=== PATIENT | male | born 1960 | race African-American/Black ===

== ENCOUNTER 2017-08-19 01:50 | Observation (INO) | payer OTHER ==
[2017-08-19] VITALS (12 sets, daily range): BP systolic 121–168; BP diastolic 66–94; PULSE 64–90; RESP 15–20; TEMP 95.6–99.2; O2SAT 95–98
[~2017-08-19] VITALS: Ht 172.7 cm; Wt 108.0 kg
[~2017-08-19 01:50] MED LIST: ACET325S8 PO; ALBU17I INH; ALLO100T PO; GUAI100S6 PO; LEVA500T PO; OMPR20CCR PO; OSEL75 PO; PRED5TAB PO
[2017-08-19] MEDS ORDERED: SODIUM CHLORIDE 0.9% FLUSH 10 ML FLUSH IV FLUSH PRN ×3 (03:00→13:30)
--- NOTE | 2017-08-19 03:14 | PD ---
HPI Chief Complaint: Abdominal Pain Time Seen by Provider: 02:59 Travel History International Travel<30 days: No Contact w/Intl Traveler<30days: No Traveled to known affect area: No History of Present Illness HPI 57-year-old male presents to the emergency department for complaint of right upper quadrant pain. Patient has had intermittent right upper quadrant pain 2 weeks and this evening pain increased to the right upper quadrant and radiated to the right back and flank region. No nausea no vomiting. Patient denies chest pain or shortness of breath. No sweats. Patient denies history of hypertension dyslipidemia diabetes tobaccoism or cardiac disease. Patient does take medication for reflux esophagitis and gouty arthritis. Patient states he did eat chicken wings for dinner but does not note specifically any dietary association with this pain. Patient has had no fever or chills. No hematemesis coffee-ground emesis melena hematochezia. Patient rates pain as moderate to severe. Patient notes that sitting up and range of motion seem to worsen symptoms. Patient has been taking ibuprofen for pain relief over the past 3 weeks. PFSH Past Medical History Narrative Medical Gouty arthritis GERD occasional alcohol use marijuana use; nursing notes reviewed Cancer: No Cardiovascular Problems: No Diminished Hearing: No Endocrine: No Gout: Yes Immune Disorder: No Musculoskeletal: No Neurologic: No Psychiatric: No Reproductive: No Respiratory: No Past Surgical History Surgical History: No Previous Surgery Social History Alcohol Use: Yes Tobacco Use: No Substance Use: Yes (MARIJUANA) Allergies-Medications (Allergen,Severity, Reaction): Coded Allergies: amoxicillin (Unverified Allergy, Severe, 08/19/17) Reported Meds & Prescriptions Reported Meds & Active Scripts Active Reported Ibuprofen 200 Mg Tab 400 Mg PO DAILY PRN Omeprazole 20 Mg Tab 20 Mg PO DAILY Allopurinol 100 Mg Tab 100 Mg PO DAILY Review of Systems Except as stated in HPI: all other systems reviewed are Neg General / Constitutional: No: Fever, Chills HENT: No: Congestion Cardiovascular: No: Chest Pain or Discomfort Respiratory: No: Shortness of Breath Gastrointestinal: Positive: Abdominal Pain, No: Nausea, Vomiting Genitourinary: Positive: Flank Pain Musculoskeletal: No: Myalgias, Arthralgias Skin: No Rash Neurologic: No: Weakness Psychiatric: No: Anxiety Hematologic/Lymphatic: No: Lymph Node Enlargement Physical Exam Narrative GENERAL: Well-developed well-nourished female in no acute distress no respiratory distress SKIN: Warm and dry. HEAD: Normocephalic. EYES: No scleral icterus. No injection or drainage. NECK: Supple, trachea midline. No JVD or lymphadenopathy. CARDIOVASCULAR: Regular rate and rhythm without murmurs, gallops, or rubs. RESPIRATORY: Breath sounds equal bilaterally. No accessory muscle use. GASTROINTESTINAL: Abdomen soft, right upper quadrant tenderness to direct palpation without guarding or rebound, nondistended. MUSCULOSKELETAL: No cyanosis, or edema. BACK: Nontender without obvious deformity. Mild right flank tenderness/CVA tenderness. Data Data Last Documented VS Vital Signs Date Time Temp Pulse Resp B/P (MAP) Pulse Ox O2 Delivery O2 Flow Rate FiO2 08/19/17 07:13 79 15 135/74 (94) 96 08/19/17 03:59 Room Air 08/19/17 01:51 99.2 Orders Orders Complete Blood Count With Diff (08/19/17 02:59) Comprehensive Metabolic Panel (08/19/17 02:59) Lipase (08/19/17 02:59) Lactic Acid (08/19/17 02:59) Prothrombin Time / Inr (Pt) (08/19/17 02:59) Act Partial Throm Time (Ptt) (08/19/17 02:59) Urinalysis - C+S If Indicated (08/19/17 02:59) Ct Abd/Pel W Iv Contrast(Rout) (08/19/17 02:59) Iv Access Insert/Monitor (08/19/17 02:59) Ecg Monitoring (08/19/17 02:59) Oximetry (08/19/17 02:59) Sodium Chloride 0.9% Flush (Ns Flush) (08/19/17 03:00) Electrocardiogram (08/19/17 02:59) Morphine Inj (Morphine Inj) (08/19/17 03:15) Ondansetron Inj (Zofran Inj) (08/19/17 03:15) Troponin I (08/19/17 04:05) Ckmb (Isoenzyme) Profile (08/19/17 04:05) CKMB (08/19/17 03:34) CKMB% (08/19/17 03:34) Iohexol 350 Inj (Omnipaque 350 Inj) (08/19/17 04:42) Iohexol 350 Inj (Omnipaque 350 Inj) (08/19/17 04:53) Sodium Chlor 0.9% 1000 Ml Inj (Ns 1000 M (08/19/17 05:15) Lactic Acid (08/19/17 05:08) Sodium Chlor 0.9% 1000 Ml Inj (Ns 1000 M (08/19/17 05:15) Us Abdomen Gallbladder (08/19/17 ) Morphine Inj (Morphine Inj) (08/19/17 06:45) Sodium Chlor 0.9% 1000 Ml Inj (Ns 1000 M (08/19/17 06:45) Metronidazole 500 Mg Inj (Flagyl 500 Mg (08/19/17 08:00) Ciprofloxacin 400 Mg Premix (Cipro 400 M (08/19/17 08:00) Place In Observation (08/19/17 ) Code Status (08/19/17 07:49) Vital Signs (Adult) Q4H (08/19/17 07:49) Activity Oob With Assistance (08/19/17 07:49) Sodium Chloride 0.9% Flush (Ns Flush) (08/19/17 08:00) Sodium Chloride 0.9% Flush (Ns Flush) (08/19/17 09:00) Acetaminophen (Tylenol) (08/19/17 08:00) Ondansetron Inj (Zofran Inj) (08/19/17 08:00) Basic Metabolic Panel (Bmp) (08/20/17 06:00) Complete Blood Count With Diff (08/20/17 06:00) Scd Bilateral/Knee High PARAMJIT.BID (08/19/17 07:49) Naloxone Inj (Narcan Inj) (08/19/17 08:00) Magnesium Hydroxide Liq (Milk Of Magnesi (08/19/17 08:00) Consult Gastroenterology (08/19/17 ) Admit Order (Ed Use Only) (08/19/17 ) Vital Signs (Adult) Q4H (08/19/17 07:52) Diet Npo (08/19/17 Breakfast) Activity Oob With Assistance (08/19/17 07:52) Notify Dr: Other (08/19/17 07:52) Labs Laboratory Tests Test 08/19/17 03:34 08/19/17 04:25 08/19/17 04:30 08/19/17 06:05 White Blood Count 7.0 TH/MM3 Red Blood Count 4.54 MIL/MM3 Hemoglobin 13.8 GM/DL Hematocrit 41.0 % Mean Corpuscular Volume 90.2 FL Mean Corpuscular Hemoglobin 30.5 PG Mean Corpuscular Hemoglobin Concent 33.8 % Red Cell Distribution Width 14.4 % Platelet Count 206 TH/MM3 Mean Platelet Volume 8.1 FL Neutrophils (%) (Auto) 58.8 % Lymphocytes (%) (Auto) 27.9 % Monocytes (%) (Auto) 11.8 % Eosinophils (%) (Auto) 0.8 % Basophils (%) (Auto) 0.7 % Neutrophils # (Auto) 4.1 TH/MM3 Lymphocytes # (Auto) 2.0 TH/MM3 Monocytes # (Auto) 0.8 TH/MM3 Eosinophils # (Auto) 0.1 TH/MM3 Basophils # (Auto) 0.1 TH/MM3 CBC Comment DIFF FINAL Differential Comment Blood Urea Nitrogen 15 MG/DL Creatinine 1.24 MG/DL Random Glucose 135 MG/DL Total Protein 7.7 GM/DL Albumin 3.8 GM/DL Calcium Level 9.1 MG/DL Alkaline Phosphatase 58 U/L Aspartate Amino Transf (AST/SGOT) 24 U/L Alanine Aminotransferase (ALT/SGPT) 29 U/L Total Bilirubin 0.6 MG/DL Sodium Level 140 MEQ/L Potassium Level 4.2 MEQ/L Chloride Level 104 MEQ/L Carbon Dioxide Level 24.1 MEQ/L Anion Gap 12 MEQ/L Estimat Glomerular Filtration Rate 72 ML/MIN Lactic Acid Level 3.6 mmol/L 3.3 mmol/L Total Creatine Kinase 339 U/L Creatine Kinase MB 1.1 NG/ML Creatine Kinase MB % 0.3 % Troponin I LESS THAN 0.02 NG/ML Lipase 159 U/L Urine Color YELLOW Urine Turbidity CLEAR Urine pH 5.5 Urine Specific Rand 1.024 Urine Protein TRACE mg/dL Urine Glucose (UA) NEG mg/dL Urine Ketones TRACE mg/dL Urine Occult Blood NEG Urine Nitrite NEG Urine Bilirubin NEG Urine Urobilinogen 2.0 MG/DL Urine Leukocyte Esterase NEG Urine WBC 2 /hpf Urine Mucus FEW /lpf Microscopic Urinalysis Comment CULT NOT INDICATED Prothrombin Time 10.0 SEC Prothromb Time International Ratio 1.0 RATIO Activated Partial Thromboplast Time 24.5 SEC MDM Medical Decision Making Medical Screen Exam Complete: Yes Emergency Medical Condition: Yes Medical Record Reviewed: Yes Interpretation(s) EKG normal sinus rhythm rate [address] elevation injury pattern or ectopy noted Last Impressions Abdomen/Pelvis CT 08/19/17 0259 Signed Impressions: Service Date/Time: Saturday, August 19, 2017 04:44 - CONCLUSION: 1. Colonic diverticulosis. No evidence of acute diverticulitis. 2. Enlarged prostate. 3. Degenerative findings the lumbar spine and osteoarthritic findings of the right hip. Praneeth Laguna MD CBC & BMP Diagram 08/19/17 03:34 Total Protein 7.7, Albumin 3.8, Calcium Level 9.1, Alkaline Phosphatase 58, Aspartate Amino Transf (AST/SGOT) 24, Alanine Aminotransferase (ALT/SGPT) 29, Total Bilirubin 0.6 Vital Signs Date Time Temp Pulse Resp B/P (MAP) Pulse Ox O2 Delivery O2 Flow Rate FiO2 08/19/17 03:59 84 16 122/71 (88) 96 Room Air 08/19/17 03:00 86 16 121/79 (93) 98 Room Air 08/19/17 02:30 88 15 135/72 (93) 96 Room Air 08/19/17 02:00 90 16 130/94 (106) 97 Room Air 08/19/17 01:51 99.2 85 16 168/92 (117) 96 Room Air CK: 339, mildly elevated; mb: 1.1, not elevated; mb%:0.3%, not elevated ua: wnl Differential Diagnosis Abdominal pain, biliary colic, cholecystitis, pancreatitis, choledocholithiasis , gastritis, peptic ulcer disease, atypical chest pain Narrative Course Patient placed on panel monitor EKG performed specimen collected and sent for resulting patient kept nothing by mouth CT abdomen and pelvis ordered Patient administered morphine sulfate 4 mg IV along with Zofran 4 mg IV Patient resting comfortably voicing no concerns or complaints no reproducible abdominal discomfort or tenderness no flank pain CBC is automated differential values in normal range; metabolic panel values grossly within normal range; troponin I not elevated less than 0.02 CK total mildly elevated at 339 however MB and MB percent values are not elevated EKG shows no acute injury pattern change patient denies any chest pain or shortness of breath. Patient also has had no nausea or vomiting referred neck jaw upper back shoulder arm pain. CT abdomen and pelvis per reading radiologist diverticulosis with no acute abdominal pelvic process; lactic acid is elevated of unclear etiology Patient received IV fluid hydration to our lactic acid will be performed. Patient has no findings for SIRS or sepsis increased heart rate, no increased history rate, no increased white cell count, and no fever also no obvious site of infection at this time; suspect patient has experienced an episode of biliary colic. Repeat lactic acid resulted as 3.3 after 2 L of normal saline bolus and patient continues to complain of epigastric and right upper quadrant pain this time. Ultrasound gallbladder ordered and call placed to [facility] service for observation and further evaluation of abdominal pain elevated lactic acid. Physician Communication Physician Communication patient discussed with [facility] MD for Dr Michael Anguiano; Dr Barriga Diagnosis Primary Impression: Abdominal pain Qualified Codes: R10.11 - Right upper quadrant pain Admitting Information Admitting Physician Requests: Observation Referrals: Primary Care Physician 2 days Patient Instructions: Narcotic given in the ED Betsy Cr MD Aug 19, 2017 03:14
[2017-08-19] MEDS ORDERED: MORPHINE SULFATE 2 MG/ML INJ IV PUSH ONE ×2 (03:15→06:45)
[2017-08-19] MEDS ORDERED: ONDANSETRON HCL 4 MG/2 ML VIAL IV PUSH ONE (03:15)
[2017-08-19 04:01] LABS: AUTOMATED NEUTROPHIL # 4.1 TH/MM3 (1.8-7.7); BASOPHIL # 0.1 TH/MM3 (0-0.2); BASOPHIL % 0.7 % (0.0-2.0); EOSINOPHIL # 0.1 TH/MM3 (0-0.4); EOSINOPHIL % 0.8 % (0.0-4.0); HEMOGLOBIN 13.8 GM/DL (13.0-17.0); LYMPH % 27.9 % (9.0-44.0); MEAN CELL VOLUME 90.2 FL (80.0-100.0); MEAN CORPUSCULAR HEMOGLOBIN 30.5 PG (27.0-34.0); MEAN CORPUSCULAR HGB CONC 33.8 % (32.0-36.0); MEAN PLATELET VOLUME 8.1 FL (7.0-11.0); MONO % 11.8 % (0.0-8.0); MONOCYTE # 0.8 TH/MM3 (0-0.9); NEUT % 58.8 % (16.0-70.0); PLATELET COUNT 206 TH/MM3 (150-450); RED BLOOD COUNT 4.54 MIL/MM3 (4.50-5.90); RED CELL DISTRIBUTION WIDTH 14.4 % (11.6-17.2)
[2017-08-19] MEDS ORDERED: OMEP20TA93 PO (04:04)
[2017-08-19] MEDS ORDERED: IBUP200T47 PO (04:04)
[2017-08-19] MEDS ORDERED: ALLO100T PO (04:04)
[2017-08-19 04:21] LABS: ALKALINE PHOSPHATASE 58 U/L (45-117); TOTAL BILIRUBIN ADULT 0.6 MG/DL (0.2-1.0); TOTAL PROTEIN 7.7 GM/DL (6.4-8.2)
[2017-08-19 04:28] LABS: ALBUMIN 3.8 GM/DL (3.4-5.0); ALT (GPT) 29 U/L (12-78); AST (GOT) 24 U/L (15-37); BICARBONATE 24.1 MEQ/L (21.0-32.0); BLOOD UREA NITROGEN 15 MG/DL (7-18); CALCIUM 9.1 MG/DL (8.5-10.1); CHLORIDE 104 MEQ/L (98-107); CREATININE 1.24 MG/DL (0.60-1.30); GLOMERULAR FILTRATION RATE 72 ML/MIN (>89); GLUCOSE,RANDOM 135 MG/DL (74-106); LIPASE 159 U/L (73-393); SODIUM (NA) 140 MEQ/L (136-145)
[2017-08-19 04:40] LABS: TROPONIN I LESS THAN 0.02 NG/ML (0.02-0.05)
[2017-08-19 04:41] LABS: BILIRUBIN, URINE NEG (NEG); BLOOD, URINE NEG (NEG); GLUCOSE,URINE NEG (NEG); KETONE, URINE TRACE mg/dL (NEG); MUCUS URINE FEW /lpf (OCC); NITRITE,URINE NEG (NEG); PH, URINE 5.5 (5.0-8.5); URINE COLOR YELLOW (YELLW/STRAW); URINE LEUKOCYTE ESTERASE NEG (NEG)
[2017-08-19] MEDS ORDERED: IOHEXOL 350 MG/ML 10 ML VIAL (for RAD DIAG) IVCONTRAST ONE ×2 (04:42→04:53)
--- NOTE | 2017-08-19 05:03 | RADRPT ---
EXAM DATE/TIME: 08/19/2017 04:44 [place] COMPARISON: No previous studies available for comparison. INDICATIONS : Abdominal pain X 3 weeks. IV CONTRAST: 97 cc Omnipaque 350 (iohexol) IV ORAL CONTRAST: No oral contrast ingested. RADIATION DOSE: 16.00 CTDIvol (mGy) MEDICAL HISTORY : Gout SURGICAL HISTORY : None. ENCOUNTER: Initial ACUITY: 3 weeks PAIN SCALE: 6/10 LOCATION: abdomen TECHNIQUE: Volumetric scanning of the abdomen and pelvis was performed. Using automated exposure control and ad justment of the mA and/or kV according to patient size, radiation dose was kept as low as reasonably achievable to obtain optimal diagnostic quality images. DICOM format image data is available electro nically for review and comparison. FINDINGS: LOWER LUNGS: The visualized lower lungs are clear. LIVER: Homogeneous density without lesion. There is no dilation of the biliary tree. No calcified gallston es. SPLEEN: Normal size without lesion. PANCREAS: Within normal limits. KIDNEYS: Normal in size and shape. There is no mass, stone or hydronephrosis. ADRENAL GLANDS: Within normal limits. VASCULAR: There is no aortic aneurysm. BOWEL/MESENTERY: Multiple colonic diverticula concentrated in the sigmoid region. No inflammatory changes to suggest a cute diverticulitis. No evidence of bowel dilatation. No free air or free fluid. Appendix within norm al limits. ABDOMINAL WALL: 4 cm periumbilical fat-containing hernia. RETROPERITONEUM: There is no lymphadenopathy. BLADDER: No wall thickening or mass. REPRODUCTIVE: Prostate is enlarged measuring 5.2 x 4.4 cm. INGUINAL: There is no lymphadenopathy or hernia. MUSCULOSKELETAL: Degenerative findings of the lower lumbar spine and osteoarthritic findings of the right hip. CONCLUSION: 1. Colonic diverticulosis. No evidence of acute diverticulitis. 2. Enlarged prostate. 3. Degenerative findings the lumbar spine and osteoarthritic findings of the right hip. Praneeth Laguna MD on August 19, 2017 at 4:56 Board Certified Radiologist. This report was verified electronically.
[2017-08-19] MEDS ORDERED: SODIUM CHLOR 0.9% 1000 ML INJ 1,000 ML IV ONE ×2 (05:15)
[2017-08-19] MEDS: SODIUM CHLOR 0.9% 1000 ML INJ 1,000 ML IV SCH ×3 (07:16→22:45)
[2017-08-19] MEDS ORDERED: CIPROFLOXACIN 400 MG PREMIX 200 ML IV ONE (08:00)
[2017-08-19] MEDS ORDERED: ONDANSETRON HCL 4 MG/2 ML VIAL IVP PRN (08:00)
[2017-08-19] MEDS ORDERED: NALOXONE HCL 0.4 MG/ML AMP IV PUSH PRN (08:00)
[2017-08-19] MEDS ORDERED: ACETAMINOPHEN/HYDROcodone 325 MG/5 MG TAB PO PRN (08:00)
[2017-08-19] MEDS ORDERED: ACETAMINOPHEN 325 MG TAB PO PRN (08:00)
[2017-08-19] MEDS ORDERED: metroNIDAZOLE 500 MG INJ 100 ML IV ONE (08:00)
[2017-08-19] MEDS ORDERED: MAGNESIUM HYDROXIDE SUSP 30 ML CUP PO PRN (08:00)
[2017-08-19] MEDS ORDERED: ALLOPURINOL 100 MG TAB PO SCH (09:00)
[2017-08-19] MEDS ORDERED: SODIUM CHLORIDE 0.9% FLUSH 10 ML FLUSH IV FLUSH SCH ×2 (09:00→21:00)
[2017-08-19] MEDS ORDERED: PANTOPRAZOLE SODIUM 40 MG VIAL IV PUSH SCH (09:00)
--- NOTE | 2017-08-19 09:45 | HHI.HP ---
HPI Service [facility] Primary Care Physician Andi Anguiano D.O. Admission Diagnosis RUQ abdominal pain Chief Complaint: RUQ pain Travel History International Travel<30 Days: No Contact w/Intl Traveler <30 Da: No Traveled to Known Affected Are: No History of Present Illness This is a 57-year-old male patient with past medical history which includes EtOH abuse, diabetes, esophagitis, gout, hypertension and hyperlipidemia. Patient presents to the emergency department with complaints of right upper quadrant abdominal pain. Patient reports he's had intermittent right upper abdominal pain for the past 2- 3 weeks for which he's been taking ibuprofen. Patient's reports the pain has been going on for more like a month or longer. Patient reports yesterday evening (08/18/17) his pain increased and radiated to the right back and flank region. Patient states he did eat chicken wings for dinner but does not note specifically any dietary association with this pain. On admission patient reported his pain was moderate to severe. Patient denies nausea, vomiting, diarrhea, constipation, fevers, chills, cough, congestion, shortness of breath or chest pain. 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 Patient admits to drinking, "a lot," on a nightly basis. Review of Systems Constitutional: DENIES: Fatigue, Fever Eyes: DENIES: Blurred vision, Diplopia, Vision loss Respiratory: DENIES: Cough, Sputum production, Shortness of breath Cardiovascular: DENIES: Chest pain, Palpitations, Dyspnea on Exertion Gastrointestinal: COMPLAINS OF: Abdominal pain, GERD, DENIES: Black stools, Bloody stools, BRB per rectum, Constipation, Diarrhea, Nausea, Vomiting Neurologic: DENIES: Abnormal gait, Headache, Localized weakness Psychiatric: DENIES: Anxiety, Confusion, Depression Past Family Social History Past Medical History EtOH abuse, diabetes, esophagitis, gout, hypertension and hyperlipidemia Past Surgical History Denies prior surgeries Reported Medications Ibuprofen 200 Mg Tab 400 Mg PO DAILY PRN Omeprazole 20 Mg Tab 20 Mg PO DAILY Allopurinol 100 Mg Tab 100 Mg PO DAILY Allergies: Coded Allergies: amoxicillin (Unverified Allergy, Severe, 08/19/17) Active Ordered Medications Current Medications Medications (Trade) Dose Ordered Sig/Cboy Route Start Time Stop Time Status Last Admin Sodium Chloride 1,000 ml @ 125 mls/hr Q8H IV 08/19/17 06:45 08/19/17 07:16 (NS Flush) 2 ml UNSCH PRN IV FLUSH 08/19/17 08:00 (NS Flush) 2 ml BID IV FLUSH 08/19/17 09:00 (Tylenol) 650 mg Q4H PRN PO 08/19/17 08:00 (Zofran Inj) 4 mg Q6H PRN IVP 08/19/17 08:00 (Narcan Inj) 0.4 mg UNSCH PRN IV PUSH 08/19/17 08:00 (Milk Of Magnesia Liq) 30 ml Q12H PRN PO 08/19/17 08:00 (Protonix Inj) 40 mg DAILY IV PUSH 08/19/17 09:00 ([place] 5-325 Mg) 1 tab Q6H PRN PO 08/19/17 08:00 (Dilaudid Pf Inj) 0.5 mg Q6H PRN IV PUSH 08/19/17 08:00 (Zyloprim) 100 mg DAILY PO 08/19/17 09:00 Family History Reviewed and noncontributory Social History Alcohol Use: daily ETOH use, "I drink everything but beer." patient is vague and does not quantify. Last drink 08/18/17 PM Tobacco Use: No Substance Use: Yes (MARIJUANA) Physical Exam Vital Signs Vital Signs Date Time Temp Pulse Resp B/P (MAP) Pulse Ox O2 Delivery O2 Flow Rate FiO2 08/19/17 08:47 08/19/17 07:13 79 15 135/74 (94) 96 08/19/17 06:08 20 08/19/17 03:59 84 16 122/71 (88) 96 Room Air 08/19/17 03:00 86 16 121/79 (93) 98 Room Air 08/19/17 02:30 88 15 135/72 (93) 96 Room Air 08/19/17 02:00 90 16 130/94 (106) 97 Room Air 08/19/17 01:51 99.2 85 16 168/92 (117) 96 Room Air Physical Exam GENERAL: This is a well-nourished, well-developed patient, in no apparent distress. SKIN: No rashes, ecchymoses or lesions. Cool and dry. HEAD: Atraumatic. Normocephalic. No temporal or scalp tenderness. EYES: Pupils equal round and reactive. Extraocular motions intact. No scleral icterus. No injection or drainage. ENT: Nose without bleeding, purulent drainage or septal hematoma. Throat without erythema, tonsillar hypertrophy or exudate. Uvula midline. Airway patent. NECK: Trachea midline. No JVD or lymphadenopathy. Supple, nontender, no meningeal signs. CARDIOVASCULAR: Regular rate and rhythm without murmurs, gallops, or rubs. RESPIRATORY: Clear to auscultation. Breath sounds equal bilaterally. No wheezes , rales, or rhonchi. GASTROINTESTINAL: Abdomen soft, non-tender, nondistended. No hepato-splenomegaly , or palpable masses. No guarding. MUSCULOSKELETAL: Extremities without clubbing, cyanosis, or edema. No joint tenderness, effusion, or edema noted. No calf tenderness. Negative Homans sign bilaterally. NEUROLOGICAL: Awake and alert. Cranial nerves II through XII intact. Motor and sensory grossly within normal limits. Five out of 5 muscle strength in all muscle groups. Normal speech. Laboratory Laboratory Tests Test 08/19/17 03:34 08/19/17 04:25 08/19/17 04:30 08/19/17 06:05 White Blood Count 7.0 Red Blood Count 4.54 Hemoglobin 13.8 Hematocrit 41.0 Mean Corpuscular Volume 90.2 Mean Corpuscular Hemoglobin 30.5 Mean Corpuscular Hemoglobin Concent 33.8 Red Cell Distribution Width 14.4 Platelet Count 206 Mean Platelet Volume 8.1 Neutrophils (%) (Auto) 58.8 Lymphocytes (%) (Auto) 27.9 Monocytes (%) (Auto) 11.8 Eosinophils (%) (Auto) 0.8 Basophils (%) (Auto) 0.7 Neutrophils # (Auto) 4.1 Lymphocytes # (Auto) 2.0 Monocytes # (Auto) 0.8 Eosinophils # (Auto) 0.1 Basophils # (Auto) 0.1 CBC Comment DIFF FINAL Differential Comment Blood Urea Nitrogen 15 Creatinine 1.24 Random Glucose 135 Total Protein 7.7 Albumin 3.8 Calcium Level 9.1 Alkaline Phosphatase 58 Aspartate Amino Transf (AST/SGOT) 24 Alanine Aminotransferase (ALT/SGPT) 29 Total Bilirubin 0.6 Sodium Level 140 Potassium Level 4.2 Chloride Level 104 Carbon Dioxide Level 24.1 Anion Gap 12 Estimat Glomerular Filtration Rate 72 Lactic Acid Level 3.6 3.3 Total Creatine Kinase 339 Creatine Kinase MB 1.1 Creatine Kinase MB % 0.3 Troponin I LESS THAN 0.02 Lipase 159 Urine Color YELLOW Urine Turbidity CLEAR Urine pH 5.5 Urine Specific [place] 1.024 Urine Protein TRACE Urine Glucose (UA) NEG Urine Ketones TRACE Urine Occult Blood NEG Urine Nitrite NEG Urine Bilirubin NEG Urine Urobilinogen 2.0 Urine Leukocyte Esterase NEG Urine WBC 2 Urine Mucus FEW Microscopic Urinalysis Comment CULT NOT INDICATED Prothrombin Time 10.0 Prothromb Time International Ratio 1.0 Activated Partial Thromboplast Time 24.5 Result Diagram: 08/19/17 0334 08/19/17 0334 Imaging Last Impressions Abdomen/Pelvis CT 08/19/17 0259 Signed Impressions: Service Date/Time: Saturday, August 19, 2017 04:44 - CONCLUSION: 1. Colonic diverticulosis. No evidence of acute diverticulitis. 2. Enlarged prostate. 3. Degenerative findings the lumbar spine and osteoarthritic findings of the right hip. MD Dereje Beltrani VTE Risk Assessment Caprini VTE Risk Assessment: No/Low Risk (score <= 1) Caprini Risk Assessment Model Point Value = 1 Point Value = 2 Point Value = 3 Point Value = 5 Age 41-60 Minor surgery BMI > 25 kg/m2 Swollen legs Varicose veins or History of unexplained or recurrent spontaneous Oral contraceptives or hormone replacement Sepsis (< 1 month) Serious lung disease, including pneumonia (< 1 month) Abnormal pulmonary function Acute myocardial infarction Congestive heart failure (< 1 month) History of inflammatory bowel disease Medical patient at bed rest Age 61-74 Arthroscopic surgery Major open surgery (> 45 min) Laparoscopic surgery (> 45 min) Malignancy Confined to bed (> 72 hours) Immobilizing plaster cast Central venous access Age >= 75 History of VTE Family history of VTE Factor V Leiden Prothrombin [id number] Lupus anticoagulant Anticardiolipin antibodies Elevated serum homocysteine Heparin-induced thrombocytopenia Other congenital or acquired thrombophilia Stroke (< 1 month) Elective arthroplasty Hip, pelvis, or leg fracture Acute spinal cord injury (< 1 month) Prophylaxis Regimen Total Risk Factor Score Risk Level Prophylaxis Regimen 0-1 Low Early ambulation 2 Moderate Order ONE of the following: *Sequential Compression Device (SCD) *Heparin 5000 units SQ BID 3-4 Higher Order ONE of the following medications: *Heparin 5000 units SQ TID *Enoxaparin/Lovenox 40 mg SQ daily (WT < 150 kg, CrCl > 30 mL/min) *Enoxaparin/Lovenox 30 mg SQ daily (WT < 150 kg, CrCl > 10-29 mL/min) *Enoxaparin/Lovenox 30 mg SQ BID (WT < 150 kg, CrCl > 30 mL/min) AND/OR *Sequential Compression Device (SCD) 5 or more Highest Order ONE of the following medications: *Heparin 5000 units SQ TID (Preferred with Epidurals) *Enoxaparin/Lovenox 40 mg SQ daily (WT < 150 kg, CrCl > 30 mL/min) *Enoxaparin/Lovenox 30 mg SQ daily (WT < 150 kg, CrCl > 10-29 mL/min) *Enoxaparin/Lovenox 30 mg SQ BID (WT < 150 kg, CrCl > 30 mL/min) AND *Sequential Compression Device (SCD) Assessment and Plan Problem List: (1) Abdominal pain ICD Codes: R10.9 - Unspecified abdominal pain Status: Acute Plan: This is a 57-year-old male patient with past medical history which includes EtOH abuse, diabetes, esophagitis, gout, hypertension and hyperlipidemia. Patient presents to the emergency department with complaints of right upper quadrant abdominal pain. Patient reports he's had intermittent right upper abdominal pain for the past 2- 3 weeks for which he's been taking ibuprofen. Patient reports yesterday evening (08/18/17) his pain increased and radiated to the right back and flank region. Patient states he did eat chicken wings for dinner but does not note specifically any dietary association with this pain. On admission patient reported his pain was moderate to severe. Patient denies nausea, vomiting, diarrhea, constipation, fevers, chills, cough, congestion, shortness of breath or chest pain. Hemoglobin/hematocrit stable 13.8/41.0 Patient denies hemoptysis or coffee-ground emesis, patient also denies bright red blood per rectum or black CT abdomen pelvis reviewed and reveals: Colonic diverticulosis. No evidence of acute diverticulitis. Enlarged prostate. Degenerative findings in the lumbar spine and osteoarthritic findings in the right hip. lipase 159 US abdomen reviewed and reveals enlarged or genius echogenic liver suggesting diffuse hepatic disease and/or infiltration. Gallbladder sludge. Patient does consume EtOH daily consistent with cirrhosis. GI consult requested (2) Elevated lactic acid level ICD Codes: R79.89 - Other specified abnormal findings of blood chemistry Plan: Lactic acid upon arrival to the emergency room Department 3.6, after 2 L fluid bolus patient lactic acid 3.3 White blood cell count 7.4 Patient is overall well appearing and does not appear septic or ill MAXIMUM TEMPERATURE 99.2 Will continue to observe recheck lactic acid in AM (3) ETOH abuse ICD Codes: F10.10 - Alcohol abuse, uncomplicated Plan: US consistent with cirrhosis of the liver discussed with patient and his Librium started will taper Ativan as needed Assessment and Plan addendum: Patient left AMA 08/20/17. Patient Oscar Estrada III has decided to leave the hospital against medical advice. This patient has the capacity to refuse care and understands the risks of leaving, including permanent disability and/or , and has had an opportunity to ask questions about his condition. The patient has been informed that he may return for care at any time , and follow up has been arranged/advised. Patient examined. Assessment and plan formulated with Chantel Licona PA-C. I agree with the above. Hospitalization and subsequent AMA communicated with pt's PCP. Problem Qualifiers (1) Abdominal pain: Qualified Codes: R10.11 - Right upper quadrant pain Chantel Licona Aug 19, 2017 09:45 Zak Barriga DO Aug 19, 2017 13:09
--- NOTE | 2017-08-19 09:56 | RADRPT ---
EXAM DATE/TIME: 08/19/2017 08:59 [facility] COMPARISON: No previous studies available for comparison. INDICATIONS : Right upper quadrant pain. MEDICAL HISTORY : Right upper quadrant pain. Gout. ETOH use daily. SURGICAL HISTORY : None. ENCOUNTER: Initial ACUITY: 1 day PAIN SCORE: 5/10 LOCATION: Bilateral upper quadrant MEASUREMENTS: LIVER: 18.0 cm length COMMON DUCT: 4 mm RIGHT KIDNEY: 11.9 x 6.7 x 6.2 cm FINDINGS: LIVER: The liver is enlarged, heterogeneous and echogenic suggesting diffuse hepatic disease and/or fatty in filtration. No focal hepatic mass is noted. No biliary ductal dilatation is noted. There is hepatopet al flow within the portal vein. COMMON DUCT: No intraluminal mass or stone visualized. GALLBLADDER: Gallbladder sludge is noted. Contains no stones, demonstrates no wall thickening or pericholecystic f luid. PANCREAS: The visualized portions are within normal limits. RIGHT KIDNEY: No evidence of hydronephrosis, stone, or mass. CONCLUSION: 1. Enlarged, heterogeneous echogenic liver suggesting diffuse hepatic disease and/or infiltration. 2. Gallbladder sludge. Dawood Rosenberg MD on August 19, 2017 at 9:52 Board Certified Radiologist. This report was verified electronically.
[2017-08-19] MEDS: HYDROmorphone HCL PF 2 MG/ML VIAL IV PUSH PRN ×2 (10:25→17:49)
--- NOTE | 2017-08-19 11:42 | PD.CONS ---
HPI History of Present Illness This is a 57 year old with hx ETOH abuse, esophagitis, gout, HTN who presented with abd pain. Pain started 3 wks ago, is in RUQ, constant, no association with eating or aggravating or relieving factors. Admits frequent use NSAIDs for over a month, takes advil PM and BC powder. Denies n/v, blood in stool, black tarry stool, weight loss. Not on blood thinners. Never had pain like this before. Admits acid reflux for which he takes omeprazole and it controls his reflux well. Had colonoscopy 1 year ago at [facility], findings diverticulosis. Never had EGD. Denies hx trouble with gallbladder and liver. He is able to eat, had chicken wings last night. US showed GB sludge but no signs inflammation, CT scan showed diverticulosis. PFSH Past Medical History esophagitis, gout, HTN GERD Past Surgical History never had surgery Coded Allergies: amoxicillin (Unverified Allergy, Severe, 08/19/17) Family History DM Social History "alot" etoh consumption, pint hard liquor daily on occasion, trying to cut back denies tobacco use occasional marijuana Review of Systems Constitutional: DENIES: Weight loss Endocrine: DENIES: Polydipsia Eyes: DENIES: Blurred vision Ears, nose, mouth, throat: DENIES: Hearing loss Respiratory: DENIES: Cough Cardiovascular: DENIES: Chest pain Gastrointestinal: COMPLAINS OF: Abdominal pain, DENIES: Black stools, Bloody stools, Constipation, Diarrhea, Nausea, Vomiting, Hematemesis Genitourinary: DENIES: Hematuria Musculoskeletal: DENIES: Joint Swelling Integumentary: DENIES: Rash Hematologic/lymphatic: DENIES: Bruising Neurologic: DENIES: Abnormal gait Psychiatric: DENIES: Confusion GI Exam Vitals I&O Vital Signs Date Time Temp Pulse Resp B/P (MAP) Pulse Ox O2 Delivery O2 Flow Rate FiO2 08/19/17 08:47 08/19/17 08:00 96.1 86 20 136/77 (96) 95 08/19/17 07:13 79 15 135/74 (94) 96 08/19/17 06:08 20 08/19/17 03:59 84 16 122/71 (88) 96 Room Air 08/19/17 03:00 86 16 121/79 (93) 98 Room Air 08/19/17 02:30 88 15 135/72 (93) 96 Room Air 08/19/17 02:00 90 16 130/94 (106) 97 Room Air 08/19/17 01:51 99.2 85 16 168/92 (117) 96 Room Air I/O 08/18/17 08/18/17 08/18/17 08/19/17 08/19/17 08/19/17 07:00 15:00 23:00 07:00 15:00 23:00 Intake Total 2000 ml Output Total 450 ml Balance 1550 ml Intake IV Total 2000 ml Output Urine Total 450 ml Imaging Last Impressions Abdomen/Pelvis CT 08/19/17 0259 Signed Impressions: Service Date/Time: Saturday, August 19, 2017 04:44 - CONCLUSION: 1. Colonic diverticulosis. No evidence of acute diverticulitis. 2. Enlarged prostate. 3. Degenerative findings the lumbar spine and osteoarthritic findings of the right hip. Praneeth Laguna MD Gall Bladder Ultrasound 08/19/17 0000 Signed Impressions: Service Date/Time: Saturday, August 19, 2017 08:59 - CONCLUSION: 1. Enlarged , heterogeneous echogenic liver suggesting diffuse hepatic disease and/or infiltration. 2. Gallbladder sludge. Dawood Rosenberg MD Laboratory Test 08/19/17 03:34 08/19/17 04:25 08/19/17 04:30 08/19/17 06:05 White Blood Count 7.0 TH/MM3 Red Blood Count 4.54 MIL/MM3 Hemoglobin 13.8 GM/DL Hematocrit 41.0 % Mean Corpuscular Volume 90.2 FL Mean Corpuscular Hemoglobin 30.5 PG Mean Corpuscular Hemoglobin Concent 33.8 % Red Cell Distribution Width 14.4 % Platelet Count 206 TH/MM3 Mean Platelet Volume 8.1 FL Neutrophils (%) (Auto) 58.8 % Lymphocytes (%) (Auto) 27.9 % Monocytes (%) (Auto) 11.8 % Eosinophils (%) (Auto) 0.8 % Basophils (%) (Auto) 0.7 % Neutrophils # (Auto) 4.1 TH/MM3 Lymphocytes # (Auto) 2.0 TH/MM3 Monocytes # (Auto) 0.8 TH/MM3 Eosinophils # (Auto) 0.1 TH/MM3 Basophils # (Auto) 0.1 TH/MM3 CBC Comment DIFF FINAL Differential Comment Blood Urea Nitrogen 15 MG/DL Creatinine 1.24 MG/DL Random Glucose 135 MG/DL Total Protein 7.7 GM/DL Albumin 3.8 GM/DL Calcium Level 9.1 MG/DL Alkaline Phosphatase 58 U/L Aspartate Amino Transf (AST/SGOT) 24 U/L Alanine Aminotransferase (ALT/SGPT) 29 U/L Total Bilirubin 0.6 MG/DL Sodium Level 140 MEQ/L Potassium Level 4.2 MEQ/L Chloride Level 104 MEQ/L Carbon Dioxide Level 24.1 MEQ/L Anion Gap 12 MEQ/L Estimat Glomerular Filtration Rate 72 ML/MIN Lactic Acid Level 3.6 mmol/L 3.3 mmol/L Total Creatine Kinase 339 U/L Creatine Kinase MB 1.1 NG/ML Creatine Kinase MB % 0.3 % Troponin I LESS THAN 0.02 NG/ML Lipase 159 U/L Urine Color YELLOW Urine Turbidity CLEAR Urine pH 5.5 Urine Specific [place] 1.024 Urine Protein TRACE mg/dL Urine Glucose (UA) NEG mg/dL Urine Ketones TRACE mg/dL Urine Occult Blood NEG Urine Nitrite NEG Urine Bilirubin NEG Urine Urobilinogen 2.0 MG/DL Urine Leukocyte Esterase NEG Urine WBC 2 /hpf Urine Mucus FEW /lpf Microscopic Urinalysis Comment CULT NOT INDICATED Prothrombin Time 10.0 SEC Prothromb Time International Ratio 1.0 RATIO Activated Partial Thromboplast Time 24.5 SEC Physical Examination HEENT: PERRL; normocephalic; atraumatic; no jaundice. CHEST: CTA CARDIAC: RRR ABDOMEN: Soft, protuberant, nontender; no hepatosplenomegaly; bowel sounds are present in all four quadrants. EXTREMITIES: No clubbing, cyanosis, or edema. SKIN: Normal; no rash; no jaundice. LAPEL PADDER: No focal deficits; alert and oriented times three. Assessment and Plan Plan ASSESSMENT - RUQ pain - unclear etiology, could be gastric ulcer vs gallbladder dysfunction. Pt denies association pain and eating. hx frequent NSAID use. hx GERD on omeprazole. Had cscope 1 y ago with finding diverticulosis. never had EGD. No prior hx trouble with gallbladder or liver. US showed GB sludge, no signs inflammation, enlarged liver fatty liver vs hepatocellular dz, CT showed diverticulosis. No LFT derangement. pt prefers outpt w/u, will d/w Dr Henao d/w primary PLAN - pt will need EGD, pt prefers to do outpt, will get him appt next week at our office. if he is still here we will do next week - HIDA if EGD negative - BID PO protonix - carafate before meals - soft heart healthy diet - etoh cessation Pt d/w Dr Henao and this note is written on his behalf Lisa Ward Aug 19, 2017 11:42
[2017-08-19] MEDS: SUCRALFATE 1 GM TAB PO SCH ×2 (12:48→17:49)
--- NOTE | 2017-08-19 13:03 | EKG ---
Date Performed: 08/19/2017 Time Performed: 03:21:50 PTAGE: 57 years EKG: Sinus rhythm NONSPECIFIC T-WAVE ABNORMALITY BORDERLINE ECG Compared to PREVIOUS TRACING , T-wave changes are new. PREVIOUS TRACIN10/28/2012 13.07 DOCTOR: Aris Santillan Interpretating Date/Time 08/19/2017 13:02:37
[2017-08-19] MEDS ORDERED: FLUMAZENIL 0.5 MG/5 ML VIAL IV PUSH PRN (13:30)
[2017-08-19] MEDS ORDERED: LORazepam 2 MG TAB PO PRN (13:30)
[2017-08-19] MEDS ORDERED: LORazepam 2 MG/ML VIAL IV PUSH PRN ×4 (13:30)
[2017-08-19] MEDS ORDERED: LORazepam 1 MG TAB PO PRN (13:30)
[2017-08-19] MEDS ORDERED: cloNIDine HCL 0.1 MG TAB PO PRN (13:30)
[2017-08-19] MEDS ORDERED: chlordiazePOXIDE 25 MG CAP PO SCH (18:00)
[2017-08-19] MEDS ORDERED: PANTOPRAZOLE SOD 40 MG DELAYED RELEASE TAB PO SCH (21:00)
[2017-08-20 03:59] VITALS: BP 138/78; PULSE 74; RESP 17; TEMP 98.4; O2SAT 96
[2017-08-20] MEDS: HYDROmorphone HCL PF 2 MG/ML VIAL IV PUSH PRN (05:09)
[2017-08-20 05:17] LABS: AUTOMATED NEUTROPHIL # 3.2 TH/MM3 (1.8-7.7); BASOPHIL % 0.6 % (0.0-2.0); EOSINOPHIL # 0.1 TH/MM3 (0-0.4); EOSINOPHIL % 1.6 % (0.0-4.0); HEMATOCRIT 38.7 % (39.0-51.0); HEMOGLOBIN 13.2 GM/DL (13.0-17.0); LYMPH % 27.5 % (9.0-44.0); LYMPHOCYTE # 1.5 TH/MM3 (1.0-4.8); MEAN CELL VOLUME 90.1 FL (80.0-100.0); MEAN CORPUSCULAR HEMOGLOBIN 30.8 PG (27.0-34.0); MEAN CORPUSCULAR HGB CONC 34.1 % (32.0-36.0); MEAN PLATELET VOLUME 8.1 FL (7.0-11.0); MONO % 10.6 % (0.0-8.0); MONOCYTE # 0.6 TH/MM3 (0-0.9); NEUT % 59.7 % (16.0-70.0); PLATELET COUNT 166 TH/MM3 (150-450); RED BLOOD COUNT 4.29 MIL/MM3 (4.50-5.90); RED CELL DISTRIBUTION WIDTH 14.2 % (11.6-17.2); WHITE BLOOD COUNT 5.3 TH/MM3 (4.0-11.0)
[2017-08-20 05:36] LABS: BICARBONATE 28.1 MEQ/L (21.0-32.0); CALCIUM 8.6 MG/DL (8.5-10.1); CREATININE 0.85 MG/DL (0.60-1.30)
[2017-08-20] MEDS: SODIUM CHLOR 0.9% 1000 ML INJ 1,000 ML IV SCH (06:45)
[2017-08-20] MEDS ORDERED: THIAMINE HCL 100 MG TAB PO SCH (09:00)
[2017-08-20] MEDS ORDERED: MULTIVITAMINS/MINERALS THERAPEUTIC TAB PO SCH (09:00)
[2017-08-20] MEDS ORDERED: FOLIC ACID 1 MG TAB PO SCH (09:00)
== END 2017-08-20 09:12 | disposition left against medical advice (07) ==
LOC: NEPC 01:50 → NEDA 07:53 → NEPHCDU 08:39
PROVIDERS: ADMIT Hospitalist; ATTEND Hospitalist
DX: R10.11 Right upper quadrant pain (principal); R74.0 Nonspecific elevation of levels of transaminase and lactic acid dehydrogenase [LDH]; K57.30 Diverticulosis of large intestine without perforation or abscess without bleeding; K21.0 Gastro-esophageal reflux disease with esophagitis; K70.30 Alcoholic cirrhosis of liver without ascites; F10.10 Alcohol abuse, uncomplicated; F12.90 Cannabis use, unspecified, uncomplicated; E78.5 Hyperlipidemia, unspecified; R94.31 Abnormal electrocardiogram [ECG] [EKG]; I10 Essential (primary) hypertension; E11.9 Type 2 diabetes mellitus without complications; M10.9 Gout, unspecified; M19.90 Unspecified osteoarthritis, unspecified site; N40.0 Benign prostatic hyperplasia without lower urinary tract symptoms
CPT/HCPCS: 74177; 76705; 80048; 80053; 81001; 82550; 82552; 83605; 83690; 84484; 85025; 85610; 85730; 93005; 96361; 96365; 96367; 96375; 96376; 99285; C9113; G0378; J0744; J1170; J2270; J2405; J7030; Q9967